=== PATIENT | male | born 2005 | race Caucasian/White ===

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

== ENCOUNTER 2025-02-08 00:45 | Emergency (ER) | payer SELFPAY ==
[~2025-02-08] VITALS: Ht 165.1 cm; Wt 47.2 kg
[~2025-02-08 00:45] MED LIST changes: +PENICILLIN VK500 MG PO
[2025-02-08] MEDS ORDERED: traMADol Hydrochloride 50 MG TAB PO ONE (01:50)
[2025-02-08] MEDS ORDERED: CLINDAMYCIN HCL 300 MG CAPSULE PO ONE (01:50)
[2025-02-08] MEDS ORDERED: CLINDAMYCIN HC300 MG PO (01:51)
[2025-02-08] MEDS ORDERED: TYLE3UD PO (01:51)
== END 2025-02-08 02:12 | disposition home or self-care (01) ==
LOC: ED 00:45
DX: K02.9 Dental caries, unspecified (principal); Z79.899 Other long term (current) drug therapy

== ENCOUNTER 2025-02-23 02:11 | Emergency (ER) | payer SELFPAY ==
[~2025-02-23] VITALS: Ht 170.1 cm; Wt 49.9 kg
[~2025-02-23 02:11] MED LIST changes: +CLINDAMYCIN HC300 MG PO; +TYLE3UD PO
[2025-02-23] MEDS ORDERED: Ondansetron Hydrochloride 4 MG TAB SL ONE (02:25)
[2025-02-23] MEDS ORDERED: Acetaminophen/Hydrocodone 5 MG/325 MG TABLET PO ONE (02:25)
[2025-02-23] MEDS ORDERED: PENICILLIN V POTASSIUM 500 MG TAB PO ONE (02:25)
[2025-02-23] MEDS ORDERED: PENICILLIN VK500 MG PO (02:28)
== END 2025-02-23 02:35 | disposition home or self-care (01) ==
LOC: ED 02:11
DX: K02.9 Dental caries, unspecified (principal); Z79.899 Other long term (current) drug therapy

== ENCOUNTER 2025-06-09 19:22 | Emergency (ER) | payer SELFPAY ==
[~2025-06-09] VITALS: Ht 162.6 cm; Wt 52.2 kg
[2025-06-09] MEDS ORDERED: CIPROFLOXACIN H10 ML OPH (19:36)
== END 2025-06-09 19:44 | disposition home or self-care (01) ==
LOC: ED 19:22
DX: S05.92XA Unspecified injury of left eye and orbit, initial encounter (principal); W50.0XXA Accidental hit or strike by another person, initial encounter; Y93.89 Activity, other specified; Y92.89 Other specified places as the place of occurrence of the external cause; Y99.8 Other external cause status